=== PATIENT | female | born 1995 | race African-American/Black ===

== ENCOUNTER 2020-11-02 11:16 | Inpatient (IN) | payer MEDICAID ==
[~2020-11-02] VITALS: Ht 162.6 cm; Wt 57.6 kg
[2020-11-02] MEDS ORDERED: HALOPERIDOL 5 MG TABLET PO ONE (13:30)
[2020-11-02] MEDS ORDERED: LORazepam 1 MG TABLET PO ONE (13:30)
[2020-11-02 13:33] LABS: BASOPHILS % (AUTO) 0.7 % (0.0-2.0); EOSINOPHILS % (AUTO) 10.7 % (1.0-6.0); HEMATOCRIT 36.4 % (36-46); HEMOGLOBIN 12.1 g/dL (12.0-16.0); LYMPHOCYTES # (AUTO) 2.7 K/uL (1.0-4.8); LYMPHOCYTES % (AUTO) 36.1 % (22.0-44.0); MEAN CORPUSCULAR HEMOGLOBIN 25.3 pg (26.0-34.0); MEAN CORPUSCULAR HGB CONC 33.1 G/dL (31.0-37.0); MEAN CORPUSCULAR VOLUME 76 fL (80-100); MONOCYTES # (AUTO) 0.8 K/uL (0.1-1.0); MONOCYTES % (AUTO) 11.1 % (2.0-9.0); NEUTROPHILS # (AUTO) 3.1 K/uL (1.8-7.7); NEUTROPHILS % (AUTO) 41.4 % (40.0-70.0); PLATELET COUNT (AUTO) 349 K/uL (150-450); RED BLOOD CELL COUNT(AUTO) 4.77 MIL/uL (4.00-5.20); RED CELL DISTRIBUTION WIDTH 15.3 % (11.5-14.5)
[2020-11-02 13:42] LABS: ANION GAP 8 mmol/L (8-16); CALCIUM, TOTAL 8.6 mg/dL (8.8-10.5); CARBON DIOXIDE 28 mmol/L (22-29); CHLORIDE 105 mmol/L (98-107); CREATININE 0.86 mg/dL (0.60-1.30); GLOMERULAR FILTR. RATE CALC > 60 mL/min (>60); GLUCOSE,RANDOM 84 mg/dL (70-110); POTASSIUM 3.9 mmol/L (3.5-5.1); SODIUM SERUM 141 mmol/L (136-145); UREA NITROGEN, BLOOD 14 mg/dL (7-18)
[2020-11-02 13:47] LABS: AMPHET/METH SCREEN,URINE POSITIVE (NEGATIVE); BARBITURATE SCREEN, URINE NEGATIVE (NEGATIVE); BENZODIAZEPINES SCREEN,URINE NEGATIVE (NEGATIVE); CANNABINOID SCREEN,URINE NEGATIVE (NEGATIVE); COCAINE SCREEN,URINE NEGATIVE (NEGATIVE); METHADONE SCREEN, URINE NEGATIVE (NEGATIVE); OPIATE SCREEN,URINE NEGATIVE (NEGATIVE); PHENCYCLIDINE SCREEN,URINE NEGATIVE (NEGATIVE)
[2020-11-02 13:53] LABS: ALANINE AMINOTRANSFERASE 14 U/L (12-78); ALBUMIN 3.2 g/dL (3.4-5.0); ALKALINE PHOSPHATASE 95 U/L (46-116); ASPARTATE AMINOTRANSFERASE 15 U/L (15-37); BILIRUBIN,TOTAL 0.2 mg/dL (0.1-1.0); HCG,QUANTITATIVE 1 mIU/mL (0-6); TOTAL PROTEIN, SERUM 7.5 g/dL (6.4-8.2)
[2020-11-02] MEDS ORDERED: TUBERCULIN, PURIFIED PROTEIN DERIVATIVE 5 TU/0.1 ML SYRINGE ID ONE (15:00)
[2020-11-02] MEDS ORDERED: LOPERAMIDE HCL 2 MG CAPSULE PO PRN (15:00)
[2020-11-02] MEDS ORDERED: MAG HYDROX/AL HYDROX/SIMETH ES 30 ML SUSPENSION UDCUP PO PRN (15:00)
[2020-11-02] MEDS ORDERED: GuaiFENesin/D-METHORPHAN [SUGAR-FREE] 200-20MG/10 ML SYRUP UDCUP PO PRN (15:00)
[2020-11-02] MEDS ORDERED: MAGNESIUM HYDROXIDE SUSPENSION 30 ML UDCUP PO PRN (15:00)
[2020-11-02] MEDS ORDERED: PROMETHAZINE HCL 25 MG TABLET PO PRN (15:00)
[2020-11-02 15:56] LABS: COVID AG,FIA SOURCE NASOPHARYNGEAL
[2020-11-02] MEDS: THIAMINE 100 MG TABLET PO SCH (21:56)
[2020-11-02] MEDS: DIVALPROEX SODIUM 250 MG ER TABLET PO SCH (21:56)
[2020-11-02] MEDS: OLANZapine 5 MG RAPDIS TABLET PO SCH (21:57)
[2020-11-02] MEDS ORDERED: INFLUENZA VIRUS VACCINE QVS 2020-21 (6MO+)/PF 60 MCG/0.5 ML SYRINGE IM ONE (22:30)
[2020-11-02 23:13] VITALS: BP 125/71
[2020-11-03 05:22] VITALS: BP 120/70
[2020-11-03 08:47] VITALS: BP 112/68
[2020-11-03] MEDS: NALTREXONE HCL 50 MG TABLET PO SCH (09:11)
[2020-11-03] MEDS: OMEGA-3/DHA/EPA/FISH OIL 1,000 MG CAPSULE PO SCH (09:11)
[2020-11-03] MEDS: THIAMINE 100 MG TABLET PO SCH ×2 (09:11→17:19)
[2020-11-03] MEDS: MULTIVITAMINS WITH MINERALS, THERAPEUTIC TABLET PO SCH (09:11)
[2020-11-03] MEDS: FOLIC ACID 1 MG TABLET PO SCH (09:11)
[2020-11-03] MEDS: LORazepam 2 MG TABLET PO PRN (09:17)
[2020-11-03 17:40] VITALS: BP 91/60
[2020-11-03] MEDS: DIVALPROEX SODIUM 250 MG ER TABLET PO SCH (20:07)
[2020-11-03] MEDS: OLANZapine 5 MG RAPDIS TABLET PO SCH (20:07)
[2020-11-04 06:10] VITALS: BP 95/75
[2020-11-04] MEDS: OMEGA-3/DHA/EPA/FISH OIL 1,000 MG CAPSULE PO SCH (08:27)
[2020-11-04] MEDS: MULTIVITAMINS WITH MINERALS, THERAPEUTIC TABLET PO SCH (08:27)
[2020-11-04] MEDS: THIAMINE 100 MG TABLET PO SCH ×2 (08:27→16:12)
[2020-11-04] MEDS: FOLIC ACID 1 MG TABLET PO SCH (08:27)
[2020-11-04] MEDS: NALTREXONE HCL 50 MG TABLET PO SCH (08:27)
[2020-11-04 15:03] VITALS: BP 108/59
[2020-11-04 16:26] VITALS: BP 132/80
[2020-11-04] MEDS: OLANZapine 5 MG RAPDIS TABLET PO SCH (20:19)
[2020-11-04] MEDS: DIVALPROEX SODIUM 250 MG ER TABLET PO SCH (20:19)
[2020-11-05 00:41] VITALS: BP 104/67
[2020-11-05 09:22] VITALS: BP 100/63
[2020-11-05] MEDS: OMEGA-3/DHA/EPA/FISH OIL 1,000 MG CAPSULE PO SCH (09:47)
[2020-11-05] MEDS: FOLIC ACID 1 MG TABLET PO SCH (09:47)
[2020-11-05] MEDS: NALTREXONE HCL 50 MG TABLET PO SCH (09:47)
[2020-11-05] MEDS: MULTIVITAMINS WITH MINERALS, THERAPEUTIC TABLET PO SCH (09:47)
[2020-11-05] MEDS: THIAMINE 100 MG TABLET PO SCH ×2 (09:47→16:37)
[2020-11-05] MEDS: LORazepam 2 MG TABLET PO PRN ×2 (09:48→20:25)
[2020-11-05] MEDS: HydrOXYzine PAMOATE 50 MG CAPSULE PO PRN ×2 (10:31→20:25)
[2020-11-05 17:27] VITALS: BP 112/62
[2020-11-05] MEDS: DIVALPROEX SODIUM 250 MG ER TABLET PO SCH (20:04)
[2020-11-05] MEDS: OLANZapine 5 MG RAPDIS TABLET PO SCH (20:05)
[2020-11-06] VITALS (11 sets, daily range): BP systolic 85–118; BP diastolic 50–79
[2020-11-06] MEDS: ACETAMINOPHEN 325 MG TABLET PO PRN ×2 (01:28→18:45)
[2020-11-06] MEDS: ZOLPIDEM TARTRATE 10 MG TABLET PO PRN (01:29)
[2020-11-06] MEDS: OMEGA-3/DHA/EPA/FISH OIL 1,000 MG CAPSULE PO SCH (08:50)
[2020-11-06] MEDS: MULTIVITAMINS WITH MINERALS, THERAPEUTIC TABLET PO SCH (08:50)
[2020-11-06] MEDS: LORazepam 2 MG TABLET PO PRN ×2 (08:50→16:19)
[2020-11-06] MEDS: FOLIC ACID 1 MG TABLET PO SCH (08:50)
[2020-11-06] MEDS: HydrOXYzine PAMOATE 50 MG CAPSULE PO PRN (08:50)
[2020-11-06] MEDS: NALTREXONE HCL 50 MG TABLET PO SCH (08:50)
[2020-11-06] MEDS: THIAMINE 100 MG TABLET PO SCH ×2 (08:51→16:18)
[2020-11-06] MEDS: OLANZapine 5 MG RAPDIS TABLET PO PRN (16:19)
[2020-11-06] MEDS: DIVALPROEX SODIUM 250 MG ER TABLET PO SCH (21:00)
[2020-11-06] MEDS: OLANZapine 5 MG RAPDIS TABLET PO SCH (21:00)
[2020-11-07 06:08] VITALS: BP 111/65
[2020-11-07 08:23] VITALS: BP 100/50
[2020-11-07] MEDS: MULTIVITAMINS WITH MINERALS, THERAPEUTIC TABLET PO SCH (08:54)
[2020-11-07] MEDS: FOLIC ACID 1 MG TABLET PO SCH (08:54)
[2020-11-07] MEDS: THIAMINE 100 MG TABLET PO SCH ×2 (08:54→16:34)
[2020-11-07] MEDS: OMEGA-3/DHA/EPA/FISH OIL 1,000 MG CAPSULE PO SCH (08:54)
[2020-11-07] MEDS: NALTREXONE HCL 50 MG TABLET PO SCH (08:54)
[2020-11-07] MEDS: MetroNIDAZOLE 500 MG TABLET PO SCH ×2 (13:30→20:53)
[2020-11-07] MEDS: LORazepam 2 MG TABLET PO PRN (16:34)
[2020-11-07 16:55] VITALS: BP 126/93
[2020-11-07] MEDS ORDERED: PALIPERIDONE PALMITATE 234 MG/1.5 ML SYRINGE IM ONE (19:00)
[2020-11-07] MEDS: DIVALPROEX SODIUM 250 MG ER TABLET PO SCH (20:52)
[2020-11-07] MEDS: OLANZapine 10 MG RAPDIS TABLET PO SCH (20:53)
[2020-11-07] MEDS: ZOLPIDEM TARTRATE 10 MG TABLET PO PRN (20:53)
[2020-11-08 05:08] VITALS: BP 116/61
[2020-11-08] MEDS: FOLIC ACID 1 MG TABLET PO SCH (08:13)
[2020-11-08] MEDS: OMEGA-3/DHA/EPA/FISH OIL 1,000 MG CAPSULE PO SCH (08:13)
[2020-11-08] MEDS: THIAMINE 100 MG TABLET PO SCH ×2 (08:13→17:00)
[2020-11-08] MEDS: NALTREXONE HCL 50 MG TABLET PO SCH (08:13)
[2020-11-08] MEDS: MetroNIDAZOLE 500 MG TABLET PO SCH ×2 (08:13→20:48)
[2020-11-08] MEDS: MULTIVITAMINS WITH MINERALS, THERAPEUTIC TABLET PO SCH (08:13)
[2020-11-08 08:16] VITALS: BP 112/79
[2020-11-08 16:09] VITALS: BP 118/76
[2020-11-08] MEDS: LORazepam 2 MG TABLET PO PRN (16:12)
[2020-11-08] MEDS: OLANZapine 5 MG RAPDIS TABLET PO PRN (16:13)
[2020-11-08] MEDS: DIVALPROEX SODIUM 250 MG ER TABLET PO SCH (20:48)
[2020-11-08] MEDS: OLANZapine 10 MG RAPDIS TABLET PO SCH (20:48)
[2020-11-09 01:20] VITALS: BP 115/73
[2020-11-09] MEDS: OMEGA-3/DHA/EPA/FISH OIL 1,000 MG CAPSULE PO SCH (08:01)
[2020-11-09] MEDS: THIAMINE 100 MG TABLET PO SCH ×2 (08:01→16:40)
[2020-11-09] MEDS: MetroNIDAZOLE 500 MG TABLET PO SCH ×2 (08:01→20:29)
[2020-11-09] MEDS: NALTREXONE HCL 50 MG TABLET PO SCH (08:01)
[2020-11-09] MEDS: FOLIC ACID 1 MG TABLET PO SCH (08:01)
[2020-11-09] MEDS: MULTIVITAMINS WITH MINERALS, THERAPEUTIC TABLET PO SCH (08:02)
[2020-11-09 08:27] VITALS: BP 100/61
[2020-11-09 08:50] VITALS: BP 112/70
[2020-11-09] MEDS: LORazepam 2 MG TABLET PO PRN ×2 (08:58→16:40)
[2020-11-09 16:19] VITALS: BP 110/62
[2020-11-09] MEDS: OLANZapine 5 MG RAPDIS TABLET PO PRN (16:40)
[2020-11-09] MEDS: OLANZapine 10 MG RAPDIS TABLET PO SCH (20:29)
[2020-11-09] MEDS: DIVALPROEX SODIUM 250 MG ER TABLET PO SCH (20:29)
[2020-11-10 05:14] VITALS: BP 115/64
[2020-11-10 08:10] VITALS: BP 110/64
[2020-11-10] MEDS: FOLIC ACID 1 MG TABLET PO SCH (08:38)
[2020-11-10] MEDS: OMEGA-3/DHA/EPA/FISH OIL 1,000 MG CAPSULE PO SCH (08:38)
[2020-11-10] MEDS: THIAMINE 100 MG TABLET PO SCH ×2 (08:38→16:34)
[2020-11-10] MEDS: FLUoxetine HCL 20 MG CAPSULE PO SCH (08:39)
[2020-11-10] MEDS: MULTIVITAMINS WITH MINERALS, THERAPEUTIC TABLET PO SCH (08:39)
[2020-11-10] MEDS: NALTREXONE HCL 50 MG TABLET PO SCH (08:39)
[2020-11-10] MEDS: LORazepam 2 MG TABLET PO PRN ×2 (08:39→16:34)
[2020-11-10] MEDS: MetroNIDAZOLE 500 MG TABLET PO SCH ×2 (08:43→19:46)
[2020-11-10 16:23] VITALS: BP 112/66
[2020-11-10] MEDS: OLANZapine 5 MG RAPDIS TABLET PO PRN (16:34)
[2020-11-10] MEDS: OLANZapine 10 MG RAPDIS TABLET PO SCH (19:46)
[2020-11-10] MEDS: DIVALPROEX SODIUM 250 MG ER TABLET PO SCH (19:46)
[2020-11-11 01:52] VITALS: BP 103/69
[2020-11-11 08:36] VITALS: BP 116/60
[2020-11-11] MEDS: LORazepam 2 MG TABLET PO PRN (08:59)
[2020-11-11] MEDS: FLUoxetine HCL 20 MG CAPSULE PO SCH (08:59)
[2020-11-11] MEDS: THIAMINE 100 MG TABLET PO SCH ×2 (08:59→16:19)
[2020-11-11] MEDS: MULTIVITAMINS WITH MINERALS, THERAPEUTIC TABLET PO SCH (08:59)
[2020-11-11] MEDS: OMEGA-3/DHA/EPA/FISH OIL 1,000 MG CAPSULE PO SCH (08:59)
[2020-11-11] MEDS: FOLIC ACID 1 MG TABLET PO SCH (08:59)
[2020-11-11] MEDS ORDERED: PALIPERIDONE PALMITATE 156 MG/ML SYRINGE IM ONE (09:00)
[2020-11-11] MEDS: OLANZapine 5 MG RAPDIS TABLET PO PRN (09:00)
[2020-11-11] MEDS: MetroNIDAZOLE 500 MG TABLET PO SCH ×2 (09:01→20:34)
[2020-11-11] MEDS: NALTREXONE HCL 50 MG TABLET PO SCH (09:01)
[2020-11-11 09:48] LABS: COVID AG,FIA SOURCE NASOPHARYNGEAL
[2020-11-11 16:17] VITALS: BP 112/69
[2020-11-11] MEDS: DIVALPROEX SODIUM 250 MG ER TABLET PO SCH (20:34)
[2020-11-12 03:45] VITALS: BP 114/64
[2020-11-12 08:19] VITALS: BP 110/63
[2020-11-12] MEDS: FOLIC ACID 1 MG TABLET PO SCH (08:35)
[2020-11-12] MEDS: MULTIVITAMINS WITH MINERALS, THERAPEUTIC TABLET PO SCH (08:35)
[2020-11-12] MEDS: NALTREXONE HCL 50 MG TABLET PO SCH (08:35)
[2020-11-12] MEDS: OMEGA-3/DHA/EPA/FISH OIL 1,000 MG CAPSULE PO SCH (08:35)
[2020-11-12] MEDS: MetroNIDAZOLE 500 MG TABLET PO SCH ×2 (08:35→20:23)
[2020-11-12] MEDS: LORazepam 2 MG TABLET PO PRN ×2 (08:35→16:19)
[2020-11-12] MEDS: FLUoxetine HCL 20 MG CAPSULE PO SCH (08:35)
[2020-11-12] MEDS: OLANZapine 5 MG RAPDIS TABLET PO PRN (16:19)
[2020-11-12 16:24] VITALS: BP 112/70
[2020-11-12] MEDS: DIVALPROEX SODIUM 250 MG ER TABLET PO SCH (20:23)
[2020-11-13 02:14] VITALS: BP 117/73
[2020-11-13] MEDS: FLUoxetine HCL 20 MG CAPSULE PO SCH (09:40)
[2020-11-13] MEDS: NALTREXONE HCL 50 MG TABLET PO SCH (09:40)
[2020-11-13] MEDS: OMEGA-3/DHA/EPA/FISH OIL 1,000 MG CAPSULE PO SCH (09:40)
[2020-11-13] MEDS: MULTIVITAMINS WITH MINERALS, THERAPEUTIC TABLET PO SCH (09:40)
[2020-11-13] MEDS: MetroNIDAZOLE 500 MG TABLET PO SCH ×2 (09:42→20:22)
[2020-11-13 13:17] VITALS: BP 108/71
[2020-11-13 16:13] VITALS: BP 110/70
[2020-11-13] MEDS: DIVALPROEX SODIUM 250 MG ER TABLET PO SCH (20:22)
[2020-11-14 06:04] VITALS: BP 106/71
[2020-11-14 08:25] VITALS: BP 100/59
[2020-11-14] MEDS: MULTIVITAMINS WITH MINERALS, THERAPEUTIC TABLET PO SCH (08:56)
[2020-11-14] MEDS: FLUoxetine HCL 20 MG CAPSULE PO SCH (08:56)
[2020-11-14] MEDS: OMEGA-3/DHA/EPA/FISH OIL 1,000 MG CAPSULE PO SCH (08:56)
[2020-11-14] MEDS: NALTREXONE HCL 50 MG TABLET PO SCH (08:56)
[2020-11-14 08:59] VITALS: BP 121/64
[2020-11-14 16:16] VITALS: BP 118/72
[2020-11-14] MEDS: DIVALPROEX SODIUM 250 MG ER TABLET PO SCH (20:17)
[2020-11-14] MEDS: ZOLPIDEM TARTRATE 10 MG TABLET PO PRN (20:17)
[2020-11-14] MEDS ORDERED: OLANZapine 10 MG RAPDIS TABLET PO SCH (21:00)
[2020-11-15 00:25] VITALS: BP 102/67
[2020-11-15 08:07] VITALS: BP 109/68
[2020-11-15] MEDS: OMEGA-3/DHA/EPA/FISH OIL 1,000 MG CAPSULE PO SCH (08:54)
[2020-11-15] MEDS: MULTIVITAMINS WITH MINERALS, THERAPEUTIC TABLET PO SCH (08:54)
[2020-11-15] MEDS: NALTREXONE HCL 50 MG TABLET PO SCH (08:54)
[2020-11-15] MEDS: FLUoxetine HCL 20 MG CAPSULE PO SCH (08:54)
[2020-11-15 16:06] VITALS: BP 114/68
[2020-11-15] MEDS: DIVALPROEX SODIUM 250 MG ER TABLET PO SCH (20:34)
[2020-11-15] MEDS: OLANZapine 10 MG RAPDIS TABLET PO SCH (20:34)
[2020-11-16 00:33] VITALS: BP 132/76
[2020-11-16 08:17] VITALS: BP 100/60
[2020-11-16] MEDS: MULTIVITAMINS WITH MINERALS, THERAPEUTIC TABLET PO SCH (08:39)
[2020-11-16] MEDS: NALTREXONE HCL 50 MG TABLET PO SCH (08:39)
[2020-11-16] MEDS: FLUoxetine HCL 20 MG CAPSULE PO SCH (08:39)
[2020-11-16] MEDS: OMEGA-3/DHA/EPA/FISH OIL 1,000 MG CAPSULE PO SCH (08:39)
[2020-11-16 09:30] VITALS: BP 112/74
[2020-11-16 16:15] VITALS: BP 106/71
[2020-11-16] MEDS: DIVALPROEX SODIUM 250 MG ER TABLET PO SCH (21:02)
[2020-11-16] MEDS: OLANZapine 10 MG RAPDIS TABLET PO SCH (21:03)
[2020-11-17 00:41] VITALS: BP 100/61
[2020-11-17 08:14] VITALS: BP 113/69
[2020-11-17] MEDS: OMEGA-3/DHA/EPA/FISH OIL 1,000 MG CAPSULE PO SCH (08:23)
[2020-11-17] MEDS: MULTIVITAMINS WITH MINERALS, THERAPEUTIC TABLET PO SCH (08:23)
[2020-11-17] MEDS: FLUoxetine HCL 20 MG CAPSULE PO SCH (08:23)
[2020-11-17] MEDS: NALTREXONE HCL 50 MG TABLET PO SCH (08:23)
[2020-11-17] MEDS: LORazepam 2 MG TABLET PO PRN ×2 (10:35→16:33)
[2020-11-17 16:09] VITALS: BP 98/63
[2020-11-17] MEDS: OLANZapine 5 MG RAPDIS TABLET PO PRN (16:33)
[2020-11-17] MEDS: DIVALPROEX SODIUM 250 MG ER TABLET PO SCH (20:23)
[2020-11-17] MEDS: OLANZapine 10 MG RAPDIS TABLET PO SCH (20:23)
[2020-11-18 01:18] VITALS: BP 102/68
[2020-11-18 08:12] VITALS: BP 109/69
[2020-11-18] MEDS: MULTIVITAMINS WITH MINERALS, THERAPEUTIC TABLET PO SCH (08:34)
[2020-11-18] MEDS: LORazepam 2 MG TABLET PO PRN (08:34)
[2020-11-18] MEDS: FLUoxetine HCL 20 MG CAPSULE PO SCH (08:34)
[2020-11-18] MEDS: OMEGA-3/DHA/EPA/FISH OIL 1,000 MG CAPSULE PO SCH (08:34)
[2020-11-18] MEDS: NALTREXONE HCL 50 MG TABLET PO SCH (08:34)
[2020-11-18 14:52] LABS: COVID AG,FIA SOURCE NASOPHARYNGEAL
[2020-11-18 16:08] VITALS: BP 98/61
[2020-11-18] MEDS ORDERED: OMEG-135 PO (16:14)
[2020-11-18] MEDS ORDERED: OLAN10TA22 PO (16:14)
[2020-11-18] MEDS ORDERED: NALT50TA PO (16:14)
[2020-11-18] MEDS ORDERED: FLUO-191 PO (16:14)
[2020-11-18] MEDS ORDERED: DIVA-85 PO (16:14)
[2020-11-18] MEDS: OLANZapine 10 MG RAPDIS TABLET PO SCH (20:08)
[2020-11-18] MEDS: DIVALPROEX SODIUM 250 MG ER TABLET PO SCH (20:08)
[2020-11-19 00:22] VITALS: BP 114/72
[2020-11-19] MEDS: ACETAMINOPHEN 325 MG TABLET PO PRN (03:19)
[2020-11-19 08:29] VITALS: BP 110/66
[2020-11-19] MEDS ORDERED: FLUoxetine HCL 20 MG CAPSULE PO SCH (09:00)
[2020-11-19] MEDS: MULTIVITAMINS WITH MINERALS, THERAPEUTIC TABLET PO SCH (09:10)
[2020-11-19] MEDS: OMEGA-3/DHA/EPA/FISH OIL 1,000 MG CAPSULE PO SCH (09:10)
[2020-11-19] MEDS: NALTREXONE HCL 50 MG TABLET PO SCH (09:11)
== END 2020-11-19 12:40 | disposition home or self-care (01) | DRG 750 ==
LOC: EMS 11:17 → B3A 14:53
PROVIDERS: ADMIT Psychiatry & Neurology Psychiatry; ATTEND Psychiatry & Neurology Psychiatry
DX: F25.1 Schizoaffective disorder, depressive type (principal); F15.90 Other stimulant use, unspecified, uncomplicated; R45.851 Suicidal ideations; Z20.822 Contact with and (suspected) exposure to COVID-19; Z55.9 Problems related to education and literacy, unspecified; Z59.9 Problem related to housing and economic circumstances, unspecified; Z65.3 Problems related to other legal circumstances; Z91.19 Patient's noncompliance with other medical treatment and regimen
CPT/HCPCS: 87426; G0480

== ENCOUNTER 2020-11-07 01:49 | Emergency (ER) | payer MEDICAID ==
[~2020-11-07] VITALS: Ht 167.6 cm; Wt 70.5 kg
[2020-11-07 03:03] LABS: ANION GAP 5 mmol/L (8-16); CALCIUM, TOTAL 8.6 mg/dL (8.8-10.5); CARBON DIOXIDE 28 mmol/L (22-29); CHLORIDE 104 mmol/L (98-107); GLOMERULAR FILTR. RATE CALC > 60 mL/min (>60); GLUCOSE,RANDOM 103 mg/dL (70-110); POTASSIUM 3.7 mmol/L (3.5-5.1); SODIUM SERUM 137 mmol/L (136-145); UREA NITROGEN, BLOOD 9 mg/dL (7-18)
[2020-11-07 03:16] LABS: BASOPHILS % (AUTO) 0.5 % (0.0-2.0); EOSINOPHILS % (AUTO) 8.4 % (1.0-6.0); HEMOGLOBIN 11.9 g/dL (12.0-16.0); LYMPHOCYTES # (AUTO) 1.9 K/uL (1.0-4.8); LYMPHOCYTES % (AUTO) 34.9 % (22.0-44.0); MEAN CORPUSCULAR HEMOGLOBIN 25.1 pg (26.0-34.0); MEAN CORPUSCULAR HGB CONC 33.1 G/dL (31.0-37.0); MEAN CORPUSCULAR VOLUME 76 fL (80-100); MONOCYTES # (AUTO) 0.7 K/uL (0.1-1.0); MONOCYTES % (AUTO) 13.2 % (2.0-9.0); NEUTROPHILS # (AUTO) 2.4 K/uL (1.8-7.7); PLATELET COUNT (AUTO) 302 K/uL (150-450); RED BLOOD CELL COUNT(AUTO) 4.74 MIL/uL (4.00-5.20); RED CELL DISTRIBUTION WIDTH 14.8 % (11.5-14.5)
[2020-11-07 04:40] VITALS: BP 115/70
== END 2020-11-07 04:40 | disposition home or self-care (01) ==
LOC: EMS 01:50
DX: F20.0 Paranoid schizophrenia (principal); N94.6 Dysmenorrhea, unspecified
CPT/HCPCS: 93005

== ENCOUNTER 2020-11-29 17:02 | Emergency (ER) | payer MEDICAID ==
[~2020-11-29] VITALS: Ht 162.6 cm; Wt 54.5 kg
[~2020-11-29 17:02] MED LIST: DIVA-85 PO; FLUO-191 PO; NALT50TA PO; OLAN10TA22 PO; OMEG-135 PO
[2020-11-29] MEDS ORDERED: QUET200T PO (17:35)
[2020-11-29 17:56] LABS: AMPHET/METH SCREEN,URINE POSITIVE (NEGATIVE); BARBITURATE SCREEN, URINE NEGATIVE (NEGATIVE); BENZODIAZEPINES SCREEN,URINE NEGATIVE (NEGATIVE); CANNABINOID SCREEN,URINE NEGATIVE (NEGATIVE); COCAINE SCREEN,URINE NEGATIVE (NEGATIVE); METHADONE SCREEN, URINE NEGATIVE (NEGATIVE); OPIATE SCREEN,URINE NEGATIVE (NEGATIVE)
[2020-11-29 17:58] LABS: BASOPHILS % (AUTO) 0.8 % (0.0-2.0); EOSINOPHILS % (AUTO) 9.6 % (1.0-6.0); HEMATOCRIT 35.1 % (36-46); HEMOGLOBIN 11.6 g/dL (12.0-16.0); LYMPHOCYTES # (AUTO) 2.4 K/uL (1.0-4.8); LYMPHOCYTES % (AUTO) 43.7 % (22.0-44.0); MEAN CORPUSCULAR HEMOGLOBIN 25.7 pg (26.0-34.0); MEAN CORPUSCULAR HGB CONC 33.1 G/dL (31.0-37.0); MEAN CORPUSCULAR VOLUME 78 fL (80-100); MONOCYTES # (AUTO) 0.6 K/uL (0.1-1.0); MONOCYTES % (AUTO) 10.1 % (2.0-9.0); NEUTROPHILS % (AUTO) 35.8 % (40.0-70.0); PLATELET COUNT (AUTO) 348 K/uL (150-450); RED BLOOD CELL COUNT(AUTO) 4.51 MIL/uL (4.00-5.20); RED CELL DISTRIBUTION WIDTH 16.3 % (11.5-14.5)
[2020-11-29 18:00] LABS: PHENCYCLIDINE SCREEN,URINE NEGATIVE (NEGATIVE)
[2020-11-29 18:12] LABS: ANION GAP 7 mmol/L (8-16); CALCIUM, TOTAL 8.2 mg/dL (8.8-10.5); CARBON DIOXIDE 26 mmol/L (22-29); CHLORIDE 103 mmol/L (98-107); CREATININE 0.81 mg/dL (0.60-1.30); GLOMERULAR FILTR. RATE CALC > 60 mL/min (>60); GLUCOSE,RANDOM 84 mg/dL (70-110); POTASSIUM 3.7 mmol/L (3.5-5.1); SODIUM SERUM 136 mmol/L (136-145); UREA NITROGEN, BLOOD 10 mg/dL (7-18)
[2020-11-29 18:18] LABS: ALANINE AMINOTRANSFERASE 24 U/L (12-78); ALBUMIN 2.8 g/dL (3.4-5.0); ALKALINE PHOSPHATASE 72 U/L (46-116); ASPARTATE AMINOTRANSFERASE 17 U/L (15-37); BILIRUBIN,TOTAL 0.2 mg/dL (0.1-1.0); TOTAL PROTEIN, SERUM 7.1 g/dL (6.4-8.2)
[2020-11-29 18:28] LABS: VALPROIC ACID 4 mcg/mL (50-100)
[2020-11-29 20:24] VITALS: BP 117/65
== END 2020-11-29 20:24 | disposition home or self-care (01) ==
LOC: EMS 17:04
DX: F20.9 Schizophrenia, unspecified (principal); F31.9 Bipolar disorder, unspecified; Z79.899 Other long term (current) drug therapy
CPT/HCPCS: 36415; 80053; 80164; 80307; 85025; 99284; G0480

== ENCOUNTER 2021-03-14 16:51 | Emergency (ER) | payer MEDICAID ==
[~2021-03-14] VITALS: Ht 162.6 cm; Wt 54.5 kg
[~2021-03-14 16:51] MED LIST changes: -DIVA-85 PO; -FLUO-191 PO; -NALT50TA PO; -OLAN10TA22 PO; -OMEG-135 PO; +QUET200T PO
[2021-03-14 19:21] VITALS: BP 114/76
== END 2021-03-14 19:35 | disposition home or self-care (01) ==
LOC: EMS 16:51
DX: F10.129 Alcohol abuse with intoxication, unspecified (principal); F20.9 Schizophrenia, unspecified; F31.9 Bipolar disorder, unspecified
CPT/HCPCS: 99283; Z7502

== ENCOUNTER 2021-12-13 17:16 | Inpatient (IN) | payer MEDICAID ==
[~2021-12-13] VITALS: Ht 162.6 cm; Wt 56.8 kg
[2021-12-13] MEDS ORDERED: QUEtiapine FUMARATE 100 MG TABLET PO ONE (19:15)
[2021-12-13 19:37] LABS: BASOPHILS % (AUTO) 0.6 % (0.0-2.0); EOSINOPHILS % (AUTO) 3.4 % (1.0-6.0); HEMATOCRIT 36.8 % (36-46); HEMOGLOBIN 12.7 g/dL (12.0-16.0); LYMPHOCYTES % (AUTO) 42.7 % (22.0-44.0); MEAN CORPUSCULAR HEMOGLOBIN 25.9 pg (26.0-34.0); MEAN CORPUSCULAR HGB CONC 34.6 G/dL (31.0-37.0); MEAN CORPUSCULAR VOLUME 75 fL (80-100); MONOCYTES # (AUTO) 0.6 K/uL (0.1-1.0); MONOCYTES % (AUTO) 8.6 % (2.0-9.0); NEUTROPHILS # (AUTO) 3.1 K/uL (1.8-7.7); NEUTROPHILS % (AUTO) 44.7 % (40.0-70.0); PLATELET COUNT (AUTO) 352 K/uL (150-450); RED CELL DISTRIBUTION WIDTH 14.8 % (11.5-14.5)
[2021-12-13 19:45] LABS: ANION GAP 4 mmol/L (8-16); CALCIUM, TOTAL 8.6 mg/dL (8.8-10.5); CARBON DIOXIDE 27 mmol/L (22-29); CHLORIDE 105 mmol/L (98-107); CREATININE 0.83 mg/dL (0.60-1.30); GLOMERULAR FILTR. RATE CALC > 60 mL/min (>60); GLUCOSE,RANDOM 94 mg/dL (70-110); POTASSIUM 3.6 mmol/L (3.5-5.1); SODIUM SERUM 136 mmol/L (136-145); UREA NITROGEN, BLOOD 14 mg/dL (7-18)
[2021-12-13 19:57] LABS: ALANINE AMINOTRANSFERASE 16 U/L (12-78); ALBUMIN 3.1 g/dL (3.4-5.0); ALKALINE PHOSPHATASE 83 U/L (46-116); ASPARTATE AMINOTRANSFERASE 12 U/L (15-37); BILIRUBIN,TOTAL 0.1 mg/dL (0.1-1.0); HCG,QUANTITATIVE < 1 mIU/mL (0-6); TOTAL PROTEIN, SERUM 6.8 g/dL (6.4-8.2)
[2021-12-13 21:36] LABS: COVID AG,FIA SOURCE NASOPHARYNGEAL
[2021-12-14 02:47] VITALS: BP 120/80
[2021-12-14] MEDS ORDERED: DOCUSATE SODIUM 100 MG CAPSULE PO PRN (06:15)
[2021-12-14] MEDS ORDERED: BENZOCAINE/MENTHOL LOZENGE PO PRN (06:15)
[2021-12-14] MEDS ORDERED: ACETAMINOPHEN 325 MG TABLET PO PRN (06:15)
[2021-12-14] MEDS ORDERED: PETROLATUM,WHITE 28 GM JELLY TP PRN (06:15)
[2021-12-14] MEDS ORDERED: ALBUTEROL SULFATE HFA 90 MCG/PUFF 8 GM INHALER IH PRN (06:15)
[2021-12-14] MEDS ORDERED: OMEPRAZOLE 20 MG CAPSULE PO PRN (06:15)
[2021-12-14] MEDS ORDERED: BACITRACIN 28 GM OINTMENT TP PRN (06:15)
[2021-12-14] MEDS ORDERED: MAGNESIUM HYDROXIDE SUSPENSION 30 ML UDCUP PO PRN (06:15)
[2021-12-14] MEDS ORDERED: CloNIDine HCL 0.1 MG TABLET PO PRN (06:15)
[2021-12-14] MEDS ORDERED: MAG HYDROX/AL HYDROX/SIMETH ES 30 ML SUSPENSION UDCUP PO PRN (06:15)
[2021-12-14] MEDS ORDERED: ONDANSETRON HCL 4 MG TABLET PO PRN (06:15)
[2021-12-14] MEDS ORDERED: INFLUENZA VIRUS VACCINE QVS 2021-22 (6MO+)/PF 60 MCG/0.5 ML SYRINGE IM. ONE (07:45)
[2021-12-14 09:02] VITALS: BP 130/78
[2021-12-14 16:14] VITALS: BP 108/65
[2021-12-14] MEDS: LORazepam 2 MG TABLET PO PRN (16:52)
[2021-12-14] MEDS: QUEtiapine FUMARATE 100 MG TABLET PO PRN (21:12)
[2021-12-14] MEDS: ZOLPIDEM TARTRATE 10 MG TABLET PO PRN (22:52)
[2021-12-15 00:30] VITALS: BP 122/76
[2021-12-15 12:42] VITALS: BP 110/67
[2021-12-15 16:05] VITALS: BP 120/81
[2021-12-15] MEDS: QUEtiapine FUMARATE 100 MG TABLET PO PRN (17:05)
[2021-12-15] MEDS: LORazepam 2 MG TABLET PO PRN (17:05)
[2021-12-16 00:58] VITALS: BP 121/79
[2021-12-16] MEDS: DIVALPROEX SODIUM 500 MG DR TABLET PO SCH (16:02)
[2021-12-16 16:11] VITALS: BP 115/69
[2021-12-17] MEDS: DIVALPROEX SODIUM 500 MG DR TABLET PO SCH ×2 (08:15→16:23)
[2021-12-17] MEDS ORDERED: QUEtiapine FUMARATE 200 MG TABLET PO SCH (09:00)
[2021-12-17 16:12] VITALS: BP 99/67
[2021-12-17] MEDS: QUEtiapine FUMARATE 100 MG TABLET PO PRN (16:23)
[2021-12-18] MEDS: DIVALPROEX SODIUM 500 MG DR TABLET PO SCH ×2 (08:49→16:30)
[2021-12-18] MEDS: QUEtiapine FUMARATE 100 MG TABLET PO PRN (08:50)
[2021-12-18] MEDS: LORazepam 2 MG TABLET PO PRN ×2 (08:50→16:13)
[2021-12-18] MEDS: IBUPROFEN 600 MG TABLET PO PRN (13:15)
[2021-12-18 16:06] VITALS: BP 101/69
[2021-12-18] MEDS: QUEtiapine FUMARATE 200 MG TABLET PO SCH (20:28)
[2021-12-19] MEDS: LORazepam 2 MG TABLET PO PRN ×2 (09:08→15:40)
[2021-12-19] MEDS: DIVALPROEX SODIUM 500 MG DR TABLET PO SCH ×2 (09:08→16:28)
[2021-12-19] MEDS: QUEtiapine FUMARATE 100 MG TABLET PO PRN ×2 (09:08→15:40)
[2021-12-19 09:41] LABS: GLUCOMETER DEV NAME(LOC) POC.BV
[2021-12-19 16:08] VITALS: BP 113/66
[2021-12-19] MEDS: QUEtiapine FUMARATE 200 MG TABLET PO SCH (23:12)
[2021-12-20 01:59] VITALS: BP 110/65
[2021-12-20] MEDS: DIVALPROEX SODIUM 500 MG DR TABLET PO SCH ×2 (07:57→16:16)
[2021-12-20] MEDS: LORazepam 2 MG TABLET PO PRN (07:57)
[2021-12-20] MEDS: QUEtiapine FUMARATE 100 MG TABLET PO PRN ×2 (07:58→16:16)
[2021-12-20] MEDS: ZOLPIDEM TARTRATE 10 MG TABLET PO PRN (20:50)
[2021-12-20] MEDS: QUEtiapine FUMARATE 200 MG TABLET PO SCH (20:50)
[2021-12-21] MEDS ORDERED: DiphenhydrAMINE HCL 50 MG/ML VIAL ONE (00:57)
[2021-12-21] MEDS ORDERED: LORazepam 2 MG/ML VIAL ONE (00:57)
[2021-12-21] MEDS ORDERED: HALOPERIDOL LACTATE 5 MG/ML VIAL ONE (00:57)
[2021-12-21] MEDS ORDERED: LORazepam 2 MG/ML VIAL IM ONE (01:00)
[2021-12-21] MEDS ORDERED: DiphenhydrAMINE HCL 50 MG/ML VIAL IM ONE (01:00)
[2021-12-21] MEDS ORDERED: HALOPERIDOL LACTATE 5 MG/ML VIAL IM ONE (01:00)
[2021-12-21 03:44] VITALS: BP 100/98
[2021-12-21] MEDS: LOPERAMIDE HCL 2 MG CAPSULE PO PRN (09:55)
[2021-12-21] MEDS: DIVALPROEX SODIUM 500 MG DR TABLET PO SCH ×2 (09:55→16:26)
[2021-12-21] MEDS: LORazepam 2 MG TABLET PO PRN ×2 (09:55→16:26)
[2021-12-21] MEDS: QUEtiapine FUMARATE 100 MG TABLET PO PRN ×2 (10:14→16:26)
[2021-12-21 16:36] VITALS: BP 130/68
[2021-12-21] MEDS: QUEtiapine FUMARATE 200 MG TABLET PO SCH (20:20)
[2021-12-22] VITALS: BP 100/65
[2021-12-22] MEDS: IBUPROFEN 600 MG TABLET PO PRN ×2 (04:41→11:46)
[2021-12-22] MEDS: LOPERAMIDE HCL 2 MG CAPSULE PO PRN (07:35)
[2021-12-22] MEDS: LORazepam 2 MG TABLET PO PRN (07:35)
[2021-12-22] MEDS: QUEtiapine FUMARATE 100 MG TABLET PO PRN (07:50)
[2021-12-22] MEDS: DIVALPROEX SODIUM 500 MG DR TABLET PO SCH ×2 (08:13→16:50)
[2021-12-22 08:27] VITALS: BP 122/88
[2021-12-22] MEDS: QUEtiapine FUMARATE 200 MG TABLET PO SCH (20:22)
[2021-12-22] MEDS ORDERED: QUEtiapine FUMARATE 200 MG TABLET PO ONE (21:00)
[2021-12-23 06:11] VITALS: BP 128/82
[2021-12-23] MEDS: DIVALPROEX SODIUM 500 MG DR TABLET PO SCH ×2 (08:29→16:16)
[2021-12-23] MEDS: LORazepam 2 MG TABLET PO PRN ×2 (08:29→16:16)
[2021-12-23 16:25] VITALS: BP 116/74
[2021-12-23] MEDS: QUEtiapine FUMARATE 200 MG TABLET PO SCH (21:06)
[2021-12-24 06:30] VITALS: BP 110/64
[2021-12-24] MEDS: LORazepam 2 MG TABLET PO PRN (08:15)
[2021-12-24] MEDS: DIVALPROEX SODIUM 500 MG DR TABLET PO SCH ×2 (08:18→19:06)
[2021-12-24] MEDS: QUEtiapine FUMARATE 100 MG TABLET PO PRN (12:36)
[2021-12-24] MEDS: QUEtiapine FUMARATE 200 MG TABLET PO SCH (21:04)
[2021-12-25 04:06] VITALS: BP 119/67
[2021-12-25] MEDS: LOPERAMIDE HCL 2 MG CAPSULE PO PRN (07:25)
[2021-12-25] MEDS: LORazepam 2 MG TABLET PO PRN ×2 (07:25→16:35)
[2021-12-25] MEDS: DIVALPROEX SODIUM 500 MG DR TABLET PO SCH ×2 (08:11→16:26)
[2021-12-25] MEDS: QUEtiapine FUMARATE 200 MG TABLET PO SCH (20:37)
[2021-12-26] MEDS: LOPERAMIDE HCL 2 MG CAPSULE PO PRN ×2 (08:14→16:16)
[2021-12-26] MEDS: LORazepam 2 MG TABLET PO PRN ×2 (08:14→16:15)
[2021-12-26] MEDS: DIVALPROEX SODIUM 500 MG DR TABLET PO SCH ×2 (08:14→16:16)
[2021-12-26 14:26] LABS: GLUCOMETER DEV NAME(LOC) POC.BV
[2021-12-26 16:30] VITALS: BP 102/64
[2021-12-26] MEDS: QUEtiapine FUMARATE 200 MG TABLET PO SCH (19:48)
[2021-12-27 03:02] VITALS: BP 110/67
[2021-12-27 08:21] VITALS: BP 106/72
[2021-12-27] MEDS: DIVALPROEX SODIUM 500 MG DR TABLET PO SCH ×2 (08:26→18:00)
[2021-12-27] MEDS ORDERED: HALOPERIDOL LACTATE 5 MG/ML VIAL ONE (13:20)
[2021-12-27] MEDS ORDERED: DiphenhydrAMINE HCL 50 MG/ML VIAL ONE (13:20)
[2021-12-27] MEDS ORDERED: LORazepam 2 MG/ML VIAL ONE (13:20)
[2021-12-27] MEDS ORDERED: DiphenhydrAMINE HCL 50 MG/ML VIAL IM ONE (13:30)
[2021-12-27] MEDS ORDERED: LORazepam 2 MG/ML VIAL IM ONE (13:30)
[2021-12-27] MEDS ORDERED: HALOPERIDOL LACTATE 5 MG/ML VIAL IM ONE (13:30)
[2021-12-27] MEDS: QUEtiapine FUMARATE 200 MG TABLET PO SCH (20:47)
[2021-12-28 04:35] VITALS: BP 102/68
[2021-12-28 08:14] VITALS: BP 108/68
[2021-12-28] MEDS: LORazepam 2 MG TABLET PO PRN (09:12)
[2021-12-28] MEDS: DIVALPROEX SODIUM 500 MG DR TABLET PO SCH ×2 (09:12→16:10)
[2021-12-28] MEDS: QUEtiapine FUMARATE 100 MG TABLET PO PRN (16:10)
[2021-12-28 16:12] VITALS: BP 101/65
[2021-12-28] MEDS: QUEtiapine FUMARATE 200 MG TABLET PO SCH (20:18)
[2021-12-29 07:23] VITALS: BP 106/68
[2021-12-29] MEDS: DIVALPROEX SODIUM 500 MG DR TABLET PO SCH ×2 (08:09→16:03)
[2021-12-29] MEDS: LORazepam 2 MG TABLET PO PRN (08:11)
[2021-12-29 08:14] VITALS: BP 112/73
[2021-12-29] MEDS: QUEtiapine FUMARATE 100 MG TABLET PO PRN (16:03)
[2021-12-29 16:39] VITALS: BP 103/76
[2021-12-29] MEDS: QUEtiapine FUMARATE 200 MG TABLET PO SCH (20:03)
[2021-12-30 04:23] VITALS: BP 108/77
[2021-12-30] MEDS: DIVALPROEX SODIUM 500 MG DR TABLET PO SCH (08:44)
[2021-12-30] MEDS ORDERED: DIVA-112 PO (14:03)
[2021-12-30] MEDS ORDERED: QUET200T30 PO (14:03)
== END 2021-12-30 14:30 | disposition home or self-care (01) | DRG 750 ==
LOC: EMS 17:20 → UNDOADMIN 23:30 → B2S 23:30 → B3A 12-19 18:01
PROVIDERS: ADMIT Psychiatry & Neurology Psychiatry; ATTEND Psychiatry & Neurology Psychiatry
DX: F25.9 Schizoaffective disorder, unspecified (principal); R45.851 Suicidal ideations; Z91.14 Patient's other noncompliance with medication regimen; F12.90 Cannabis use, unspecified, uncomplicated; F15.10 Other stimulant abuse, uncomplicated; F31.9 Bipolar disorder, unspecified; F41.9 Anxiety disorder, unspecified; G47.00 Insomnia, unspecified; K59.00 Constipation, unspecified; Z79.899 Other long term (current) drug therapy; Z20.822 Contact with and (suspected) exposure to COVID-19
CPT/HCPCS: 80053; 80164; 84702; 85025; 99285; G0480; J1200; J1630; J2060; Q0162

== ENCOUNTER 2024-08-18 01:30 | Emergency (ER) | payer MEDICAID, OTHER ==
[~2024-08-18] VITALS: Ht 162.6 cm; Wt 78.6 kg
[~2024-08-18 01:30] MED LIST changes: +DIVA-112 PO; -QUET200T PO; +QUET200T30 PO
[2024-08-18 01:43] VITALS: TEMP 98.1
[2024-08-18 03:07] VITALS: BP 103/71; PULSE 88; RESP 20; O2SAT 96
[2024-08-18] MEDS ORDERED: QUET200T PO (03:24)
[2024-08-18] MEDS: QUEtiapine FUMARATE 100 MG TABLET PO ONE (03:56)
[2024-08-18] MEDS: QUEtiapine FUMARATE 25 MG TABLET PO ONE (04:15)
== END 2024-08-18 04:27 | disposition home or self-care (01) ==
LOC: EMS 01:32
DX: F20.9 Schizophrenia, unspecified (principal); F31.9 Bipolar disorder, unspecified; F12.90 Cannabis use, unspecified, uncomplicated; F17.210 Nicotine dependence, cigarettes, uncomplicated
CPT/HCPCS: 99284; Z7502; Z7610